=== PATIENT | female | born 1980 | race Two or more races ===

== ENCOUNTER 2018-02-13 16:27 | Emergency (ER) | payer SELFPAY ==
[~2018-02-13] VITALS: Ht 175.3 cm; Wt 99.8 kg
[2018-02-13 16:36] VITALS: BP 168/103
[2018-02-13] MEDS ORDERED: LIDOCAINE WITH 8.4% SOD BICARB 3 ML DISP.SYRIN. INJ ONE (16:45)
[2018-02-13] MEDS ORDERED: IBUPROFEN 600 MG TABLET. PO ONE (16:45)
[2018-02-13] MEDS ORDERED: HYDROcodone/APAP 5/325MG 1 TAB TABLET PO ONE (16:45)
[2018-02-13] MEDS ORDERED: ceFAZolin IM 1 GM VIAL IM ONE (17:15)
[2018-02-13] MEDS ORDERED: CEPH-264 PO (17:38)
--- NOTE | 2018-02-13 17:48 | PHYS DOC ---
Past Medical History Past Medical History: Other Additional Past Medical Histor: headaches, endometriosis Past Surgical History: Cholecystectomy Alcohol Use: None Drug Use: None Adult General Chief Complaint Chief Complaint: FINGER INJURY HPI HPI Patient is a 37 year old female who presents with untying a dog leash and the dog ran off at 1615 and the leash got caught around patient's right middle finger. Right middle finger is fractured with an open avulsion and the tip of the nail is out of the nail bed. Review of Systems Review of Systems Constitutional: Denies fever or chills [] Eyes: Denies change in visual acuity, redness, or eye pain [] HENT: Denies nasal congestion or sore throat [] Respiratory: Denies cough or shortness of breath [] Cardiovascular: No additional information not addressed in HPI [] GI: Denies abdominal pain, nausea, vomiting, bloody stools or diarrhea [] : Denies dysuria or hematuria [] Musculoskeletal: Denies back pain or joint pain. Right middle finger fracture with avulsion of nail.[] Integument: Denies rash or skin lesions [] Neurologic: Denies headache, focal weakness or sensory changes [] Endocrine: Denies polyuria or polydipsia [] All other systems were reviewed and found to be within normal limits, except as documented in this note. Current Medications Current Medications Current Medications Medications (Trade) Dose Ordered Sig/Seb Start Time Stop Time Status Last Admin Dose Admin Acetaminophen/ Hydrocodone Bitart (Lortab 5/325) 2 tab 1X ONCE 02/13/18 16:45 02/13/18 16:46 DC 02/13/18 16:46 2 TAB Cefazolin Sodium (Ancef Im) 1 gm 1X ONCE 02/13/18 17:15 02/13/18 17:16 DC 02/13/18 17:37 1 GM Ibuprofen (Motrin) 600 mg 1X ONCE 02/13/18 16:45 02/13/18 16:46 DC 02/13/18 16:46 600 MG Lidocaine/Sodium Bicarbonate (Buffered Lidocaine 1%) 3 ml 1X ONCE 02/13/18 16:45 02/13/18 16:46 DC 02/13/18 16:47 3 ML Allergies Allergies Allergies Coded Allergies Type Severity Reaction Last Updated Verified No Known Drug Allergies 11/25/14 No Physical Exam Physical Exam Constitutional: Well developed, well nourished, no acute distress, non-toxic appearance. [] HENT: Normocephalic, atraumatic, bilateral external ears normal, oropharynx moist, no oral exudates, nose normal. [] Eyes: PERRLA, EOMI, conjunctiva normal, no discharge. [] Neck: Normal range of motion, no tenderness, supple, no stridor. [] Cardiovascular:Heart rate regular rhythm, no murmur [] Lungs & Thorax: Bilateral breath sounds clear to auscultation [] Abdomen: Bowel sounds normal, soft, no tenderness, no masses, no pulsatile masses. [] Skin: Warm, dry, no erythema, no rash. [] Back: No tenderness, no CVA tenderness. [] Extremities: No tenderness, no cyanosis, no clubbing, ROM intact, no edema. Right middle finger fracture with avulsion. [] Neurologic: Alert and oriented X 3, normal motor function, normal sensory function, no focal deficits noted. [] Psychologic: Affect normal, judgement normal, mood normal. [] Current Patient Data Vital Signs Vital Signs Date Time Temp Pulse Resp B/P (MAP) Pulse Ox O2 Delivery O2 Flow Rate FiO2 02/13/18 16:36 99.1 106 22 168/103 (124) 96 Room Air 99.1 EKG EKG [] Radiology/Procedures Radiology/Procedures x ray right fingers[] Impressions: Fracture of Distal Phalanx and read by Dr Hdz. Course & Med Decision Making Course & Med Decision Making Upon examination patient rates her pain a 10 out 10. Patient has a distal phalanx fracture with an open nail avulsion. Patient's nail is pulled up out of the nail bed. Patient has less than 3 Refill and radial pulses are intact. Patient's finger is sharp and throbbing and the patient is unable to straighten out finger. Bleeding is controlled. Patient's middle finger is digitally blocked with buffering lidocaine 3 mL. Patient states that her tetanus shot was given less than 5 years ago. Patient is given 1 g of Ancef IM, 2 [place], 100 mg of ibuprofen in the ED today. Middle finger nail is pop back into the nail bed after being thoroughly cleansed with chlorhexidine and rinsed. There was no foreign bodies in the finger or nail. The finger is splinted and wrapped. Dr. Cortez Perez is consulted at [facility] and the patient is to follow-up with him Friday or earlier next week. The patient is sent home with a prescription for [place], ibuprofen, Keflex 500 mg 4 times a day 10 days. Patient understands these instructions and agrees to the discharge. Patient is told to ice the finger and keep it elevated. He shouldn't is discharged home. Dragon Disclaimer Dragon Disclaimer This electronic medical record was generated, in whole or in part, using a voice recognition dictation system. Departure Departure Impression: Primary Impression: Avulsion fracture Additional Impression: Avulsed fingernail Disposition: HOME, SELF-CARE Condition: STABLE Referrals: NO PCP (PCP) Patient Instructions: Finger Fracture Additional Instructions: CALL DR. CORTEZ PEREZ AT [phone] AND HE SHOULD BE ABLE TO SEE YOU FRIDAY. Scripts Ibuprofen (IBUPROFEN) 600 Mg Tablet 600 MG PO PRN Q6HRS PRN for INFLAMMATION, #10 TAB Prov: BETY GUTIERREZ APRN 02/13/18 Hydrocodone/Apap 5-325 (NORCO 5-325 TABLET) 1 Each Tablet 1 TAB PO PRN Q6HRS PRN for PAIN, #8 TAB 0 Refills Prov: BETY GUTIERREZ APRN 02/13/18 Cephalexin (KEFLEX) 500 Mg Capsule 500 MG PO QID for 10 Days, #40 CAP Prov: BETY GUTIERREZ E [employer] 02/13/18 Problem Qualifiers Additional Impression: Avulsed fingernail Encounter type: initial encounter Qualified Codes: S61.309A - Unspecified open wound of unspecified finger with damage to nail, initial encounter BETY GUTIERREZ APRFeb 13, 2018 17:48
[2018-02-13] MEDS ORDERED: HYDR-971 PO (18:03)
[2018-02-13] MEDS ORDERED: IBUP-1007 PO (18:03)
--- NOTE | 2018-02-13 22:48 | RAD ---
Three-view right third finger radiographs 02/13/2018 CLINICAL HISTORY: Laceration injury to the right third finger. A PA digital radiograph of the right hand was obtained. Oblique and lateral digital radiographs of the right third finger were obtained. An acute oblique slightly comminuted fracture of the proximal metaphysis/diaphysis of the distal phalanx of the right third finger is seen. The major distal fracture fragment is displaced slightly posteriorly and angulated slightly anteriorly. Soft tissue swelling and irregularity are seen in this region consistent with the patient's history of a laceration. The fracture does not extend into the DIP joint. No additional fracture is seen. No radiopaque foreign body is noted. IMPRESSION: Acute slightly comminuted fracture of the distal phalanx of the right third finger as outlined above. Electronically signed by: Todd Yee MD (02/13/2018 10:45 PM) [facility]
== END 2018-02-13 18:11 | disposition home or self-care (01) ==
LOC: ER 16:27
DX: S62.632A Displaced fracture of distal phalanx of right middle finger, initial encounter for closed fracture (principal); S61.302A Unspecified open wound of right middle finger with damage to nail, initial encounter; Z90.49 Acquired absence of other specified parts of digestive tract; W23.1XXA Caught, crushed, jammed, or pinched between stationary objects, initial encounter; Y93.89 Activity, other specified; Y92.89 Other specified places as the place of occurrence of the external cause; Y99.8 Other external cause status
CPT/HCPCS: 11730; 73140; 96372; 99284; J0690